=== PATIENT | male | born 1965 | race African-American/Black ===

== ENCOUNTER 2018-03-12 14:48 | Emergency (ER) | payer BC ==
[~2018-03-12] VITALS: Ht 182.9 cm; Wt 90.7 kg
[2018-03-12 16:13] LABS: Albumin 3.6 g/dL (3.4-5.0); BUN/Creatinine Ratio 14.6; Calcium 8.9 mg/dL (8.5-10.1); Potassium 3.4 mmol/L (3.5-5.1)
[2018-03-12 16:16] LABS: Bilirubin, Total 0.8 mg/dL (0.2-1.0); Total Protein 8.2 g/dL (6.4-8.2)
[2018-03-12 16:18] LABS: Basophils # (auto) 0 uL; Basophils % (auto) 0.3 % (0.0-2.0); Eosinophils # (auto) 0 uL; Lymphocytes # (auto) 0.9 uL; Monocytes # (auto) 0.8 uL
[2018-03-12 16:21] LABS: Eosinophils % (auto) 0.2 % (0.0-7.0); Hematocrit 38.1 % (41.0-53.0); Lymphocytes % (auto) 9.5 % (10.0-50.0); Mean Corpuscular Hemoglobin 36.2 pg (28.0-32.0); Mean Corpuscular Hgb Conc. 34.2 g/dL (32.0-36.0); Mean Corpuscular Volume 105.8 fL (80.0-100.0); Monocytes % (auto) 8.5 % (0.0-12.0); Neutrophils # (auto) 7.5 uL; Neutrophils % (auto) 81.5 % (37.0-80.0); Platelet Count (auto) 173 10^3/uL (140-450); Red Cell Distribution Width 13.1 % (11.8-14.3); White Blood Cell 9.3 10^3/uL (4.4-10.8)
[2018-03-12] MEDS ORDERED: HYDROcodone-ACET 10/325MG TAB PO ONE ×2 (17:15→22:15)
[2018-03-12] MEDS ORDERED: IBUPROFEN 800 MG TAB PO ONE ×2 (18:45→22:15)
[2018-03-12] MEDS ORDERED: ALLOPURINOL 300 MG TAB PO ONE ×2 (18:45→22:15)
[2018-03-12] MEDS ORDERED: HYDROcodone-ACET 5/325MG TAB PO ONE (18:45)
[2018-03-12] MEDS ORDERED: LIDOCAINE 1% HCL (LOCAL ANESTH.) INJ 20ML MDV ID ONE (19:45)
[2018-03-12] MEDS ORDERED: FAMOTIDINE (10MG/ML) 2ML VL IV ONE (20:45)
[2018-03-12] MEDS ORDERED: methylPREDNISolone SOD SUCC 125 MG/2 ML VL IV ONE (20:45)
[2018-03-12] MEDS ORDERED: diphenhdrAMINE HCL 25 MG CAP PO ONE (20:45)
[2018-03-12 21:36] VITALS: BP 148/99
[2018-03-12] MEDS ORDERED: NEOMYCIN-BACITRACIN-POLYM UNITDOSE PKG TOP OINT TOP ONE (22:00)
== END 2018-03-12 20:16 | disposition home or self-care (01) ==
LOC: ER 14:48
DX: M10.062 Idiopathic gout, left knee (principal); M10.061 Idiopathic gout, right knee; F17.210 Nicotine dependence, cigarettes, uncomplicated; F12.10 Cannabis abuse, uncomplicated
CPT/HCPCS: 20610; 36415; 71045; 73562; 73700; 80053; 84550; 85025; 87205; 99284; J2001